=== PATIENT | male | born 1965 | race Caucasian/White ===

== ENCOUNTER 2019-09-06 09:26 | Emergency (ER) | payer MEDICARE, BC ==
[~2019-09-06] VITALS: Ht 188 cm; Wt 102.3 kg
[~2019-09-06 09:26] MED LIST: AMBIEN10 MG PO; HYDROCODONE-APA1 TAB PO; LIPITOR40 MG PO; PERCOCET 10/3251 TA1 PO; VALIUM10 MG PO; ZANAFLEX4 MG PO; [UNRECOGNIZED DRUG - REMARK] PO
[2019-09-06 09:36] VITALS: Ht 188 cm; Wt 102.3 kg
[2019-09-06] MEDS ORDERED: BACLOFEN10 MG PO (10:14)
[2019-09-06 13:02] LABS: APPEARANCE CLEAR (CLEAR); BILIRUBIN NEGATIVE (NEGATIVE); COLOR YELLOW (YELLOW); GLUCOSE NEGATIVE (NEGATIVE); KETONE NEGATIVE (NEGATIVE); NITRITE NEGATIVE (NEGATIVE); PROTEIN NEGATIVE (NEGATIVE); SPECIFIC GRAVITY 1.005 (1.005-1.020); UROBILINOGEN NORMAL (NORMAL)
[2019-09-06 13:03] LABS: BACTERIA FEW /hpf (NEGATIVE); EPITHELIAL CELLS OCC /hpf (0-5); MUCUS <1+ /lpf (NONE SEEN); WHITE CELLS - URINE NSEEN /hpf (NEGATIVE)
[2019-09-06] MEDS ORDERED: HYDROCODONE-A1 UDTA2 PO (13:51)
[2019-09-06] MEDS ORDERED: FLOMAX0.4 MG PO (13:51)
[2019-09-06 14:13] VITALS: BP 106/79
== END 2019-09-06 14:08 | disposition home or self-care (01) ==
LOC: D.ER 09:26
PROVIDERS: Family Medicine
DX: N20.0 Calculus of kidney (principal)